=== PATIENT | male | born 1995 | race Two or more races ===

== ENCOUNTER 2022-08-29 15:11 | Emergency (ER) | payer OTHER ==
[~2022-08-29] VITALS: Ht 182.9 cm; Wt 93.9 kg
[2022-08-29] MEDS ORDERED: COMPLERA TABLE1 EACH PO (15:15)
== END 2022-08-29 21:03 | disposition home or self-care (01) ==
LOC: ER 15:11
DX: S93.492A Sprain of other ligament of left ankle, initial encounter (principal)